=== PATIENT | female | born 1965 | race African-American/Black ===

== ENCOUNTER → 2018-03-25 | Outpatient (CLI) | payer MEDICARE, OTHER ==
[~2018-03-25] MED LIST: ZESTRIL 10MG10 MG PO
== END ==
LOC: MC.RAD 14:20
DX: Z12.31 Encounter for screening mammogram for malignant neoplasm of breast (principal)

== ENCOUNTER 2018-04-02 06:50 | Day surgery (SDC) | payer MEDICARE, OTHER ==
[~2018-04-02] VITALS: Ht 162.6 cm; Wt 70.1 kg
[2018-04-02] MEDS ORDERED: ZESTRIL 10MG10 MG PO (07:25)
[2018-04-02 07:27] VITALS: BP 141/90; PULSE 54; TEMP 98.2
[2018-04-02 08:37] VITALS: BP 122/68; PULSE 49; TEMP 98.1
[2018-04-02 08:45] VITALS: BP 100/70; PULSE 49
[2018-04-02 09:00] VITALS: BP 110/62; PULSE 45
[2018-04-02 09:15] VITALS: BP 118/68; PULSE 52
== END 2018-04-02 09:40 | disposition home or self-care (01) ==
LOC: SDCO 06:50
DX: Z12.11 Encounter for screening for malignant neoplasm of colon (principal); K63.5 Polyp of colon; G89.29 Other chronic pain; M25.569 Pain in unspecified knee; M54.9 Dorsalgia, unspecified; F41.8 Other specified anxiety disorders; I10 Essential (primary) hypertension; F17.290 Nicotine dependence, other tobacco product, uncomplicated; Z83.3 Family history of diabetes mellitus; Z82.49 Family history of ischemic heart disease and other diseases of the circulatory system
CPT/HCPCS: J2250; J2405; J3010; J7030

== ENCOUNTER → 2018-04-02 | Outpatient (CLI) | payer MEDICARE, OTHER | LOC: MC.RAD 09:53 | DX: R92.2 Inconclusive mammogram (principal); N64.89 Other specified disorders of breast ==

== ENCOUNTER → 2019-06-28 | Outpatient (CLI) | payer MEDICARE, OTHER | LOC: MC.RAD 11:45 | DX: Z12.31 Encounter for screening mammogram for malignant neoplasm of breast (principal); N63.10 Unspecified lump in the right breast, unspecified quadrant; N64.89 Other specified disorders of breast ==

== ENCOUNTER → 2019-07-05 | Outpatient (CLI) | payer MEDICARE, OTHER | LOC: MC.RAD 13:55 | DX: N60.02 Solitary cyst of left breast (principal); N60.01 Solitary cyst of right breast; N64.89 Other specified disorders of breast ==

== ENCOUNTER 2019-12-15 18:18 | Emergency (ER) | payer MEDICARE, OTHER ==
[~2019-12-15] VITALS: Ht 162.6 cm; Wt 68.2 kg
[2019-12-15 18:37] VITALS: BP 149/86; TEMP 98
[2019-12-15] MEDS ORDERED: NORCO 325 MG-51 TAB PO (19:35)
[2019-12-15 19:54] VITALS: PULSE 64
== END 2019-12-15 19:54 | disposition home or self-care (01) ==
LOC: COL.ER 18:18
DX: S80.12XA Contusion of left lower leg, initial encounter (principal); I10 Essential (primary) hypertension; Z87.891 Personal history of nicotine dependence; W20.8XXA Other cause of strike by thrown, projected or falling object, initial encounter; Y92.009 Unspecified place in unspecified non-institutional (private) residence as the place of occurrence of the external cause

== ENCOUNTER → 2020-07-04 | Outpatient (CLI) | payer MEDICARE, OTHER ==
[~2020-07-04] MED LIST changes: +NORCO 325 MG-51 TAB PO
== END ==
LOC: MC.RAD 10:30
DX: Z12.31 Encounter for screening mammogram for malignant neoplasm of breast (principal); N64.9 Disorder of breast, unspecified

== ENCOUNTER → 2020-07-12 | Outpatient (CLI) | payer MEDICARE, OTHER | LOC: MC.RAD 09:11 | DX: N60.01 Solitary cyst of right breast (principal) ==

== ENCOUNTER 2020-08-14 19:21 | Emergency (ER) | payer MEDICARE, OTHER ==
[~2020-08-14] VITALS: Ht 162.6 cm; Wt 63.6 kg
[2020-08-14 19:36] VITALS: BP 107/66; TEMP 97.4
[2020-08-14 21:01] VITALS: PULSE 67
== END 2020-08-14 21:05 | disposition home or self-care (01) ==
LOC: COL.ER 19:21
DX: R51.9 Headache, unspecified (principal); M79.81 Nontraumatic hematoma of soft tissue; I10 Essential (primary) hypertension; Z20.822 Contact with and (suspected) exposure to COVID-19
CPT/HCPCS: J1100

== ENCOUNTER → 2021-03-06 | Outpatient (CLI) | payer MEDICARE, OTHER | LOC: MC.RAD 13:56 | DX: R92.8 Other abnormal and inconclusive findings on diagnostic imaging of breast (principal) ==

== ENCOUNTER → 2022-01-15 | Outpatient (CLI) | payer MEDICARE, OTHER | LOC: MC.RAD 09:30 | DX: Z12.31 Encounter for screening mammogram for malignant neoplasm of breast (principal) ==

== ENCOUNTER 2022-03-21 11:32 | Emergency (ER) | payer MEDICARE, OTHER ==
[~2022-03-21] VITALS: Ht 162.6 cm; Wt 68.2 kg
[2022-03-21 11:49] VITALS: TEMP 96.9
[2022-03-21] MEDS ORDERED: AMOXICILLIN 8751 TAB PO (13:36)
[2022-03-21 13:47] VITALS: BP 155/84; PULSE 51
== END 2022-03-21 13:47 | disposition home or self-care (01) ==
LOC: COL.ER 11:32
DX: L03.213 Periorbital cellulitis (principal); H04.322 Acute dacryocystitis of left lacrimal passage; Z28.310 Unvaccinated for COVID-19

== ENCOUNTER → 2022-04-14 | Outpatient (CLI) | payer MEDICARE, OTHER ==
[~2022-04-14] MED LIST changes: +AMOXICILLIN 8751 TAB PO
== END ==
LOC: COL.RAD 13:53
DX: N28.1 Cyst of kidney, acquired (principal)
CPT/HCPCS: Q9967

== ENCOUNTER → 2022-06-10 | Outpatient (CLI) | payer MEDICARE, OTHER | LOC: COL.RAD 14:00 | DX: M53.3 Sacrococcygeal disorders, not elsewhere classified (principal); M54.50 Low back pain, unspecified | CPT/HCPCS: G0260; J3301 ==